=== PATIENT | male | born 2000 | race Caucasian/White ===

== ENCOUNTER 2024-01-18 15:49 | Emergency (ER) | payer OTHER, SELFPAY ==
[2024-01-18 15:53] VITALS: BP 150/79
[2024-01-18 17:51] VITALS: BP 136/95
--- NOTE | 2024-01-18 19:03 | ED.GENMED ---
History of Present Illness
General
Chief Complaint: Alcohol Problem
Source: patient
Exam Limitations: none
Time Seen by Provider: 01/18/24 18:43
History of Present Illness
History of Present Illness:
This is a 24 year old male that comes in with c/o alcohol abuse. States that he was talking with people and he feels that he wants to go somewhere to get off the alcohol. States that he drinks about 3 beers daily and more on the weekend. States that
his last drink was around 1:30pm. States that he does have panic attacks. Denies any fever, chills, chest pain, SOB, abd pain, nausea, vomiting, diarrhea, headache, dizziness, urinary burning.
Past History
Past History
ED Past Medical History: Psychiatric (Bipolar disorder, alcohol abuse)
ED Past Surgical History: Orthopedic (Left ankle surgery)
Patient has exhibited threatening behavior?: No
Social History
Tobacco: Smoker
Alcohol: Chronic alcoholic (Beer or wine 3 daily)
Personal: Single
Living: with family
Review of Systems
Review of Systems
All Other Systems: ROS reviewed and negative except as documented in HPI and ROS
Constitutional: Reports no symptoms; Denies fever or chills
EENT: Reports no symptoms
Respiratory: Reports no symptoms; Denies cough or trouble breathing
Cardiac: Reports no symptoms; Denies chest pain
ABD/GI: Reports no symptoms; Denies abdominal pain, nausea, vomiting or diarrhea
: Reports no symptoms; Denies dysuria, frequency or urgency
Musculoskeletal: Reports no symptoms
Skin: Reports no symptoms
Neurological: Reports no symptoms; Denies dizzy or headache
Psychiatric: Reports anxiety
Phy Exam
General Physical Exam
General Presentation: no apparent distress
General age: appears stated age
General Skin: warm and dry
General Habitus: normal
General Mental: alert
General Hydration: dry mucous membranes
ENT Exam
ENT Exam: TM's normal, pharynx normal and neck supple
Eye Exam
Eye Exam: EOMI
Cardiovascular Exam
Cardiovascular Exam: regular rate/rhythm, no edema, no murmur and normal peripheral pulses
Pulmonary Exam
Pulmonary Exam: lungs clear, no respiratory distress, no rales, chest non tender, no crackles, no rhonchi, no wheezing and no cough
Gastrointestinal Exam
Gastrointestinal Exam: normal bowel sounds, non tender, soft, no organomegaly, no pulsatile mass and non distended
Musculoskeletal Exam
Musculoskeletal Exam: full ROM and no edema
Skin Exam
Skin Exam: normal color, warm/dry, no rash and no petechia
Psychiatric Exam
Psychiatric Exam: anxious
Scores
Withdrawal Assessment of Alcohol
Withdrawal Assessment Completed?: No
Course
Orders/Labs/Results
Orders:
Orders
01/18/24 19:44
Alcohol Urgent
Complete Blood Count/With Diff Urgent
Comprehensive Metabolic Panel Urgent
01/18/24 19:50
Crisis Consult Routine
Reason for Consult: anxiety, Not eatinig. Drinking and not taking medications
Comment: seen by [facility] and they will speak with you
01/18/24 20:03
Urine Drug Abuse Screen Urgent
Date Specimen was Collected: 01/18/24
Time Specimen was Collected: 20:02
01/18/24 20:22
Lorazepam [Ativan] 1 mg PO NOW STA
01/18/24 21:06
Haloperidol Lactate [Haldol] 5 mg IM NOW STA
Abnormal Lab Results
01/18/24
19:44
MCH 31.1 H pg
(27.0-31.0)
Calcium 10.3 H mg/dl
(8.4-10.2)
Total Protein 8.4 H g/dl
(6.3-8.2)
Albumin 5.5 H g/dl
(3.5-5.0)
01/18/24 19:44
01/18/24 19:44
Calcium slightly elevated. Total protein slightly elevated. Albumin elevated. Urine Drug negative. Alcohol 126
Vital Signs
Initial and Last Documented VS:
Initial Vital Signs
Temp Pulse Resp BP Pulse Ox
98.3 F 117 20 150/79 98
01/18/24 15:53 01/18/24 15:53 01/18/24 15:53 01/18/24 15:53 01/18/24 15:53
Last Documented Vital Signs
Temp Pulse Resp BP Pulse Ox
97.9 F 118 19 136/95 98
01/18/24 17:51 01/18/24 17:51 01/18/24 17:51 01/18/24 17:51 01/18/24 17:51
MDM/Problems Addressed
Differential Diagnosis Includes:
alcohol abuse, Anxiety
MDM/Problems Addressed:
This is a 24 year old male that comes in with c/o alcohol abuse. States that he wants to go somewhere to get off the alcohol.
Will check labs and have [facility] see patient.
Patient was seen by [facility]. Patient has not been taking any of his psychiatric medications and it is felt that the patient would do better going inpatient for Psychiatric care as the alcohol is being uses to treat the Psychiatric problems. consult
place for Crisis.
Patient has been seen by Crisis and is not suicidal or Homicidal. Patient has been at [facility] in the past and is willing go call them tomorrow. Friend with patient states that he will make sure that he gets there. Explained to patient that he is
using the alcohol instead of his psych mediations. Will discharge home.
Chronic conditions affecting care: Psychiatric illness
Acute Exacerbation and/or Progression of Chronic Illness: Psychiatric illness
*Pulse Oximetry
Patient hypoxic: no
*EKG
Interpreted by ED Provider?: NA
Rate: EKG- N/A
*Mobile Solutions Architect Interpretation
Rate: Mobile Solutions Architect- N/A
*Critical Care Note
Total Time (30-74mins, 75-104mins- exclusive of procedures): Not Applicable
ED Attending Note
-
Portions of this chart may have been created with voice recognition software.� Occasional wrong word or��sound alike� substitutions may have occurred due to the inherent limitations of voice recognition software.
Discharge Plan
Departure
Patient Disposition: Home (Routine Discharge)
Date of Disposition: 01/18/24
Time of Disposition: 22:12
Patient with high blood pressure during this ER visit?: Yes
Condition: Good
Covid-19: Not Applicable
Discharge Problem:
Alcohol use disorder
Instructions: Alcohol Use Disorder (DC), BLOOD PRESSURE
Referrals:
Aashish Razo MD [Family Provider] -
Behzad Wells [Active] - Tomorrow
Activity Restrictions/Additional Instructions:
As discussed, you have been seen by [facility] and Crisis. You have not been taking your Psychiatric medications and instead you are using alcohol to help. Please call [facility] tomorrow and get back into see them. IF YOU HAVE ANY THOUGHTS OF HURTING
YOURSELF OR OTHERS OR YOU HAVE ANY OTHER CONCERNS PLEASE RETURN TO THE EMERGENCY ROOM.
Interventions
Interventions:
*Risk Screen - Suicide Last Done: 01/18/24 15:52
*General Assessment Last Done: 01/18/24 15:53
*Neglect/Abuse Screening Last Done: 01/18/24 15:52
ED- Fall Risk Assessment Last Done: 01/18/24 18:55
*ED COVID-19 Vaccine History Last Done: 01/18/24 19:09
ED- Neurological Assessment Last Done: 01/18/24 18:55
ED-Psychological Assessment Last Done: 01/18/24 18:55
Discharge Date and Time
Print Language: BOLIVIAN
[2024-01-18 19:51] LABS: % Basophils 1.4 % (0-2); % Eosinophils 0.8 % (0-6); % Immature Granulocytes 0.2 % (0-0.5); % Lymphocytes 29.6 % (20.5-51.1); % Monocytes 7.5 % (1.7-9.3); % Neutrophils 60.5 % (42.2-75.2); Absolute Basophils 0.1 10^3/uL (0-0.2); Absolute Lymphocytes 1.5 10^3/uL (1.2-3.4); Absolute Monocytes 0.4 10^3/uL (0.1-0.6); Absolute Neutrophils 3.1 10^3/uL (1.4-6.5); Hematocrit 45.3 % (39.0-52.0); Hemoglobin 16.1 g/dL (13.0-18.0); Mean Corp Hgb Conc. 35.5 g/dL (33.0-37.0); Mean Corpuscular Hgb 31.1 pg (27.0-31.0); Mean Corpuscular Volume 87.6 fL (80.0-94.0); Mean Platelet Volume 8.7 fL (7.4-10.4); Nucleated Red Blood Cells % 0 % (-); Platelet Count 357 10^3/uL (130-400); Red Blood Cell Count 5.17 10^6/uL (4.70-6.10); Red Cell Dist. Width 12.9 % (11.5-14.5); White Blood Cell Count 5.2 10^3/uL (4.8-10.8)
[2024-01-18 20:05] LABS: ALT (SGPT) 20 U/L (0-50); AST (SGOT) 29 U/L (17-59); Albumin 5.5 g/dl (3.5-5.0); Alcohol 126 mg/dl; Alkaline Phosphatase 62 U/L (38-126); Blood Urea Nitrogen 10 mg/dl (9-20); Calcium 10.3 mg/dl (8.4-10.2); Carbon Dioxide 26 mmol/L (22-30); Chloride 99 mmol/L (98-107); Glucose 98 mg/dl (70-99); Potassium 4.5 mmol/L (3.5-5.1); Sodium 142 mmol/L (135-145); Total Bilirubin 0.6 mg/dl (0.2-1.3); Total Protein 8.4 g/dl (6.3-8.2); eGFR > 60.00
[2024-01-18 20:19] LABS: Amphetamines Negative (Negative); Barbiturates Negative (Negative); Benzodiazepines Negative (Negative); Buprenorphine Negative (Negative); Cocaine Negative (Negative); Marijuana Negative (Negative); Methadone Negative (Negative); Methamphetamines Negative (Negative); Opiates Negative (Negative); Phencyclidine Negative (Negative); Tricyclic Antidepressants Negative (Negative)
[2024-01-18] MEDS: ATIVAN 1 MG PO (20:26)
[2024-01-18 22:28] VITALS: BP 144/96
== END 2024-01-18 22:30 | disposition home or self-care (01) ==
LOC: EMR 15:49
PROVIDERS: Clinical Nurse Specialist Family Health; EMERGENCY PHYSICIAN Emergency Medicine; FAMILY PHYSICIAN Family Medicine
DX: F10.229 Alcohol dependence with intoxication, unspecified (principal); Y90.6 Blood alcohol level of 120-199 mg/100 ml; R03.0 Elevated blood-pressure reading, without diagnosis of hypertension; Z91.148 Patient's other noncompliance with medication regimen for other reason; F41.9 Anxiety disorder, unspecified; F31.9 Bipolar disorder, unspecified; F17.200 Nicotine dependence, unspecified, uncomplicated
CPT/HCPCS: 99283; 80053; 80306; 82077; 85025

== ENCOUNTER 2024-04-24 16:29 | Emergency (ER) | payer OTHER, SELFPAY ==
[2024-04-24 16:55] VITALS: BP 144/93
--- NOTE | 2024-04-24 17:04 | ED.GENMED ---
ED Provider Triage
<Danuta Waters PA-C - Last Filed: 04/24/24 17:07>
-
Patient seen by provider in Triage?: Seen in Triage
24 y/o M
h/o alcohol abuse
? schizophrenia
here with pressured speech
says he took 1 extra vraylar and 1 extra clonidine earlier today when he was inoxicated
not intentional to harm self but to help cope with stress
lives with mom and dthinks she is not good fo rhim, she is overbearing
no SI
her with girlfriend
apparently had some episode while at work that prompted coworker to bring him here
not currently intoxicated
no medical symptoms
Will order screening labs and crisis consult
History of Present Illness
<Danuta Waters PA-C - Last Filed: 04/24/24 17:07>
General
Chief Complaint: Crisis Evaluation
Time Seen by Provider: 04/24/24 17:42
<Patrizia Purvis PA-C - Last Filed: 04/24/24 21:09>
General
Source: patient
Exam Limitations: none
Nursing documentation reviewed up to this point in time: agreed with
History of Present Illness
History of Present Illness:
Patient is a 24-year-old male with history of bipolar disorder presenting to the emergency department for crisis evaluation. Patient states that he feels his mom is 'overbearing '. Last night he was drinking some alcohol and he accidentally took 1
extra dose of his Vraylar and clonidine. He denies any suicidal intention. Today, at work, patient states that he felt off. He is attributing this to eating very little this morning and feels that he may have been hypoglycemic. Patient does
report a history of bipolar and states he was off his medication for a while though has been taking it regularly since February. Patient denies any suicidal thoughts or ideations. Patient denies any homicidal ideations. Patient denies hearing any
voices or visual hallucinations.
Patient does see a psychiatrist with [facility]. He most recently saw them 3 days ago.
Patient states that he will not take his medication while drinking alcohol anymore.
Past History
<Danuta Waters PA-C - Last Filed: 04/24/24 17:07>
Past History
ED Past Medical History: Psychiatric (Bipolar disorder, alcohol abuse)
ED Past Surgical History: Orthopedic (Left ankle surgery)
Patient has exhibited threatening behavior?: No
Social History
Tobacco: Smoker
Alcohol: Chronic alcoholic (Beer or wine 3 daily)
Personal: Single
Living: with family
Review of Systems
<Patrizia Purvis PA-C - Last Filed: 04/24/24 21:09>
Review of Systems
Allergies reviewed?: Yes
All Other Systems: ROS reviewed and negative except as documented in HPI and ROS
Phy Exam
<Patrizia Purvis PA-C - Last Filed: 04/24/24 21:09>
Physical Exam
Physical Exam:
Vitals: Patient's vital signs are stable. Afebrile
General: Patient is in no apparent distress.
Skin: Warm and dry, no rashes or lesions
Head: Normocephalic, atraumatic
Throat: Protecting airway
Neck: Normal ROM, no cervical spine tenderness
Cardiac: Regular rate
Pulm: No apparent respiratory distress
Abdomen: Nondistended
Extremities: No evidence of cyanosis or edema
Neuro: Grossly intact
Psychiatric: Somewhat unorganized thoughts. Good insight. Cooperative with exam. Answers questions
Course
<Danuta Waters PA-C - Last Filed: 04/24/24 17:07>
Orders/Labs/Results
Orders:
Orders
04/24/24 17:06
Crisis Consult Urgent
Reason for Consult: anxiety, pkaranoia
04/24/24 17:15
Alcohol Urgent
Complete Blood Count/With Diff Urgent
Comprehensive Metabolic Panel Urgent
TSH Reflex To Free T4 Urgent
Urine Drug Abuse Screen Urgent
Date Specimen was Collected: 04/24/24
Time Specimen was Collected: 17:13
Abnormal Lab Results
04/24/24
17:15
MCH 31.2 H pg
(27.0-31.0)
Lymphocytes % 16.3 L %
(20.5-51.1)
Chloride 97 L mmol/L
(98-107)
Glucose 110 H mg/dl
(70-99)
Albumin 5.1 H g/dl
(3.5-5.0)
04/24/24 17:15
04/24/24 17:15
Vital Signs
Initial and Last Documented VS:
Initial Vital Signs
Temp Pulse Resp BP Pulse Ox
98.1 F 95 18 144/93 97
04/24/24 16:55 04/24/24 16:55 04/24/24 16:55 04/24/24 16:55 04/24/24 16:55
Last Documented Vital Signs
Temp Pulse Resp BP Pulse Ox
98.1 F 85 18 148/86 98
04/24/24 16:55 04/24/24 18:47 04/24/24 16:55 04/24/24 18:47 04/24/24 18:47
<Patrizia Purvis PA-C - Last Filed: 04/24/24 21:09>
Orders/Labs/Results
Orders:
Orders
04/24/24 17:06
Crisis Consult Urgent
Reason for Consult: anxiety, pkaranoia
04/24/24 17:15
Alcohol Urgent
Complete Blood Count/With Diff Urgent
Comprehensive Metabolic Panel Urgent
TSH Reflex To Free T4 Urgent
Urine Drug Abuse Screen Urgent
Date Specimen was Collected: 04/24/24
Time Specimen was Collected: 17:13
Abnormal Lab Results
04/24/24
17:15
MCH 31.2 H pg
(27.0-31.0)
Lymphocytes % 16.3 L %
(20.5-51.1)
Chloride 97 L mmol/L
(98-107)
Glucose 110 H mg/dl
(70-99)
Albumin 5.1 H g/dl
(3.5-5.0)
04/24/24 17:15
04/24/24 17:15
Vital Signs
Initial and Last Documented VS:
Initial Vital Signs
Temp Pulse Resp BP Pulse Ox
98.1 F 95 18 144/93 97
04/24/24 16:55 04/24/24 16:55 04/24/24 16:55 04/24/24 16:55 04/24/24 16:55
Last Documented Vital Signs
Temp Pulse Resp BP Pulse Ox
98.1 F 85 18 148/86 98
04/24/24 16:55 04/24/24 18:47 04/24/24 16:55 04/24/24 18:47 04/24/24 18:47
<Porfirio Coles, DO - Last Filed: 04/24/24 19:00>
Orders/Labs/Results
Orders:
Orders
04/24/24 17:06
Crisis Consult Urgent
Reason for Consult: anxiety, pkaranoia
04/24/24 17:15
Alcohol Urgent
Complete Blood Count/With Diff Urgent
Comprehensive Metabolic Panel Urgent
TSH Reflex To Free T4 Urgent
Urine Drug Abuse Screen Urgent
Date Specimen was Collected: 04/24/24
Time Specimen was Collected: 17:13
Abnormal Lab Results
04/24/24
17:15
MCH 31.2 H pg
(27.0-31.0)
Lymphocytes % 16.3 L %
(20.5-51.1)
Chloride 97 L mmol/L
(98-107)
Glucose 110 H mg/dl
(70-99)
Albumin 5.1 H g/dl
(3.5-5.0)
04/24/24 17:15
04/24/24 17:15
Vital Signs
Initial and Last Documented VS:
Initial Vital Signs
Temp Pulse Resp BP Pulse Ox
98.1 F 95 18 144/93 97
04/24/24 16:55 04/24/24 16:55 04/24/24 16:55 04/24/24 16:55 04/24/24 16:55
Last Documented Vital Signs
Temp Pulse Resp BP Pulse Ox
98.1 F 85 18 148/86 98
04/24/24 16:55 04/24/24 18:47 04/24/24 16:55 04/24/24 18:47 04/24/24 18:47
<Patrizia Purvis PA-C - Last Filed: 04/24/24 21:09>
MDM/Problems Addressed
Differential Diagnosis Includes:
Not limited to: Psychiatric evaluation, acute psychosis, SI/HI, etc.
MDM/Problems Addressed:
24-year-old male presenting for crisis evaluation. Denies SI/HI, visual/auditory hallucinations. No medical complaints at this time. Follows with psychiatrist at [facility]. Patient hypertensive, otherwise stable vital signs. Physical
exam as above. No neurologic deficits. Patient in no distress. Mildly unorganized thought process although cooperative with exam, answers questions, with good insight. Screening labs and urine drug screen obtained in triage without any
clinically significant abnormalities.
Ultimately�patient without any SI/HI. No visual/auditory hallucinations. Patient does not appear acutely psychotic. Do not feel patient is a harm to himself or others. Patient has excellent insight and will follow closely with psychiatry.
Advised take medications as prescribed and not mix with alcohol. Patient stable for discharge with psychiatry follow-up.
Chronic conditions affecting care:
Bipolar 1 disorder
Acute Exacerbation and/or Progression of Chronic Illness:
N/A
<Patrizia Purvis PA-C - Last Filed: 04/24/24 21:09>
*Critical Care Note
Total Time (30-74mins, 75-104mins- exclusive of procedures): Not Applicable
ED Attending Note
<Danuta Waters PA-C - Last Filed: 04/24/24 17:07>
-
Portions of this chart may have been created with voice recognition software.� Occasional wrong word or��sound alike� substitutions may have occurred due to the inherent limitations of voice recognition software.
<Porfirio Coles, - Last Filed: 04/24/24 19:00>
ED Attending Note
Patient seen and examined by attending physician: Yes
I performed a history and physical exam of patient and discussed management with resident, I reviewed resident's note and agree with documented findings and plan of care.: Yes
ED Attending Note:
I have reviewed and agree with history and treatment plan by Patrizia Purvis. My exam revealed 24-year-old male no acute distress. Denies suicidal ideation. Normal neurologic exam. Stable for discharge. Return precautions given.
Discharge Plan
Departure
Patient Disposition: Home (Routine Discharge)
Date of Disposition: 04/24/24
Time of Disposition: 19:16
Patient with high blood pressure during this ER visit?: Yes
Condition: Good
Discharge Problem:
Encounter for psychiatric assessment
Instructions: BLOOD PRESSURE
Referrals:
UNKNOWN - PT NOT,INTERVIEWE [Family Provider] -
Activity Restrictions/Additional Instructions:
RETURN TO THE EMERGENCY DEPARTMENT WITH ANY THOUGHTS OF HARMING YOURSELF OR OTHERS, HEARING VOICES, HALLUCINATIONS, WORSENING IN CURRENT SYMPTOMS, OR ANY OTHER CONCERNS
-As discussed�it is very important that you continue to take your medications as prescribed. You should not mix your medications with alcohol.
-You should follow closely with your psychiatrist for further evaluation/management
Monitor your symptoms closely and return to the emergency department with any acute worsening/new symptoms or any thoughts of harming yourself or anyone else.
Interventions
Interventions:
*Risk Screen - Suicide Last Done: 04/24/24 16:55
*General Assessment Last Done: 04/24/24 16:55
*Neglect/Abuse Screening Last Done: 04/24/24 16:55
ED- Fall Risk Assessment Last Done: 04/24/24 18:49
*Nursing Disposition Last Done: 04/24/24 19:35
ED-Psychological Assessment Last Done: 04/24/24 18:47
Discharge Date and Time
Discharge Date/Time: 04/24/24 19:36
Print Language: CITIZEN OF [place]
[2024-04-24 17:24] LABS: % Basophils 0.5 % (0-2); % Eosinophils 0.5 % (0-6); % Immature Granulocytes 0.4 % (0-0.5); % Lymphocytes 16.3 % (20.5-51.1); % Monocytes 8.1 % (1.7-9.3); % Neutrophils 74.2 % (42.2-75.2); Absolute Lymphocytes 1.3 10^3/uL (1.2-3.4); Absolute Monocytes 0.6 10^3/uL (0.1-0.6); Absolute Neutrophils 5.7 10^3/uL (1.4-6.5); Hematocrit 44.5 % (39.0-52.0); Hemoglobin 15.1 g/dL (13.0-18.0); Mean Corp Hgb Conc. 33.9 g/dL (33.0-37.0); Mean Corpuscular Hgb 31.2 pg (27.0-31.0); Mean Corpuscular Volume 91.9 fL (80.0-94.0); Mean Platelet Volume 9.2 fL (7.4-10.4); Nucleated Red Blood Cells % 0 % (-); Platelet Count 319 10^3/uL (130-400); Red Blood Cell Count 4.84 10^6/uL (4.70-6.10); White Blood Cell Count 7.7 10^3/uL (4.8-10.8)
[2024-04-24 17:42] LABS: Amphetamines Negative (Negative); Barbiturates Negative (Negative); Benzodiazepines Negative (Negative); Buprenorphine Negative (Negative); Cocaine Negative (Negative); Marijuana Negative (Negative); Methadone Negative (Negative); Methamphetamines Negative (Negative); Opiates Negative (Negative); Phencyclidine Negative (Negative); Tricyclic Antidepressants Negative (Negative)
[2024-04-24 17:45] LABS: ALT (SGPT) 20 U/L (0-50); AST (SGOT) 27 U/L (17-59); Albumin 5.1 g/dl (3.5-5.0); Alkaline Phosphatase 51 U/L (38-126); Blood Urea Nitrogen 9 mg/dl (9-20); Calcium 10.1 mg/dl (8.4-10.2); Carbon Dioxide 29 mmol/L (22-30); Chloride 97 mmol/L (98-107); Glucose 110 mg/dl (70-99); Potassium 3.9 mmol/L (3.5-5.1); Sodium 137 mmol/L (135-145); Total Protein 7.6 g/dl (6.3-8.2); eGFR > 60.00
[2024-04-24 17:48] LABS: Alcohol None Detected
[2024-04-24 18:12] LABS: TSH Reflex To Free T4 1.04 uIU/ml (0.47-4.68)
[2024-04-24 18:47] VITALS: BP 148/86
== END 2024-04-24 19:36 | disposition home or self-care (01) ==
LOC: EMR 16:29
PROVIDERS: Physician Assistant; EMERGENCY PHYSICIAN Emergency Medicine
DX: Z02.79 Encounter for issue of other medical certificate (principal); F10.90 Alcohol use, unspecified, uncomplicated; R03.0 Elevated blood-pressure reading, without diagnosis of hypertension; F31.9 Bipolar disorder, unspecified; F17.210 Nicotine dependence, cigarettes, uncomplicated
CPT/HCPCS: 99283; 80053; 80306; 82077; 84443; 85025

== ENCOUNTER 2024-04-25 10:08 | Emergency (ER) | payer OTHER, SELFPAY ==
[2024-04-25 10:12] VITALS: BP 128/100
[2024-04-25 10:40] LABS: % Basophils 0.4 % (0-2); % Eosinophils 0.2 % (0-6); % Immature Granulocytes 0.4 % (0-0.5); % Lymphocytes 10.5 % (20.5-51.1); % Monocytes 6.7 % (1.7-9.3); % Neutrophils 81.8 % (42.2-75.2); Absolute Lymphocytes 0.9 10^3/uL (1.2-3.4); Absolute Monocytes 0.6 10^3/uL (0.1-0.6); Absolute Neutrophils 6.7 10^3/uL (1.4-6.5); Hematocrit 43.6 % (39.0-52.0); Hemoglobin 15.1 g/dL (13.0-18.0); Mean Corp Hgb Conc. 34.6 g/dL (33.0-37.0); Mean Corpuscular Hgb 31.3 pg (27.0-31.0); Mean Corpuscular Volume 90.3 fL (80.0-94.0); Mean Platelet Volume 9.7 fL (7.4-10.4); Nucleated Red Blood Cells % 0 % (-); Platelet Count 315 10^3/uL (130-400); Red Blood Cell Count 4.83 10^6/uL (4.70-6.10); White Blood Cell Count 8.2 10^3/uL (4.8-10.8)
[2024-04-25 10:57] LABS: ALT (SGPT) 19 U/L (0-50); AST (SGOT) 25 U/L (17-59); Alkaline Phosphatase 55 U/L (38-126); Blood Urea Nitrogen 8 mg/dl (9-20); Calcium 9.9 mg/dl (8.4-10.2); Carbon Dioxide 23 mmol/L (22-30); Chloride 102 mmol/L (98-107); Glucose 119 mg/dl (70-99); Potassium 3.7 mmol/L (3.5-5.1); Sodium 136 mmol/L (135-145); Total Bilirubin 0.5 mg/dl (0.2-1.3); Total Protein 7.4 g/dl (6.3-8.2); eGFR > 60.00
[2024-04-25 11:29] VITALS: BP 156/109
[2024-04-25] MEDS: ATIVAN 2 MG IM (11:37)
--- NOTE | 2024-04-25 11:47 | ED.GENMED ---
History of Present Illness
General
Chief Complaint: Alcohol Problem
Source: patient
Time Seen by Provider: 04/25/24 11:23
History of Present Illness
History of Present Illness:
24-year-old male with past medical history of alcohol abuse and possible bipolar disorder presenting to the ER via EMS for alcohol abuse. Patient drinks daily, last drink this morning prior to arrival with patient stating he feels that he needs
psychiatric admission. Patient very difficult to get a history from, will answer some questions and then have tangential rapid speech and very difficult to redirect. Patient states that he feels as if he is having an anxiety attack. Questionable
compliance with chronic medication. Remainder of history very difficult to obtain
Past History
Past History
ED Past Medical History: Psychiatric (Bipolar disorder, alcohol abuse)
ED Past Surgical History: Orthopedic (Left ankle surgery)
Patient has exhibited threatening behavior?: No
Social History
Tobacco: Smoker
Alcohol: Chronic alcoholic (Beer or wine 3 daily)
Drug: None
Personal: Single
Living: with family
Review of Systems
Review of Systems
All Other Systems: ROS reviewed and negative except as documented in HPI and ROS
Phy Exam
Physical Exam
Physical Exam:
GENERAL: Alert , very anxious, rapid speech, very difficult to redirect, does not sit still
EYE: conjunctiva clear
NECK: Supple
ENT: o/p clr, mmm.
CARDIAC: Borderline tachycardic rate and rhythm
LUNGS: Clear breath sounds bilaterally, no acute respiratory distress, no wheezes/rales/rhonchi
NEUROLOGICAL: Alert and oriented
SKIN: Warm and dry, skin intact.
MUSCULOSKELETAL: well perfused.
PSYCH: Normal and appropriate interaction.
Scores
Heart Failure Risk
Heart Failure Risk Score: Not Applicable
Heart Score for Chest Pain Patients
STEMI patient?: Not applicable
Withdrawal Assessment of Alcohol
Withdrawal Assessment Completed?: Not applicable
Course
Orders/Labs/Results
Orders:
Orders
04/25/24 10:25
Complete Blood Count/With Diff Urgent
Comprehensive Metabolic Panel Urgent
04/25/24 11:34
Lorazepam [Ativan] 2 mg IM NOW STA
04/25/24 11:35
Crisis Consult Urgent
Reason for Consult: 201 requested
04/25/24 11:49
Nicotine [Nicoderm Transdermal] 21 mg TRANSDERM NOW STA
04/25/24 14:07
Drug Screen, Urine [Urine Drug Abuse Screen] Urgent
Date Specimen was Collected: 04/25/24
Time Specimen was Collected: 14:05
Fentanyl, Urine Urgent
Abnormal Lab Results
04/25/24 04/25/24
10:25 14:07
MCH 31.3 H pg
(27.0-31.0)
Absolute Neuts (auto) 6.7 H 10^3/uL
(1.4-6.5)
Absolute Lymphs (auto) 0.9 L 10^3/uL
(1.2-3.4)
Neutrophils % 81.8 H %
(42.2-75.2)
Lymphocytes % 10.5 L %
(20.5-51.1)
BUN 8 L mg/dl
(9-20)
Glucose 119 H mg/dl
(70-99)
U Benzodiazepines Scrn Positive H
(Negative)
04/25/24 10:25
04/25/24 10:25
Vital Signs
Initial and Last Documented VS:
Initial Vital Signs
Temp Pulse Resp BP Pulse Ox
98.0 F 103 16 128/100 98
04/25/24 10:12 04/25/24 10:12 04/25/24 10:12 04/25/24 10:12 04/25/24 10:12
Last Documented Vital Signs
Temp Pulse Resp BP Pulse Ox
98.0 F 105 15 156/109 98
04/25/24 10:12 04/25/24 11:31 04/25/24 11:23 04/25/24 11:29 04/25/24 10:12
MDM/Problems Addressed
Differential Diagnosis Includes:
Alcohol/substance abuse, withdrawal, underlying psychiatric disorder
MDM/Problems Addressed:
24-year-old male presenting to the ER initially reported for alcohol abuse however patient appears to have some form of psychiatric disturbance, very rapid and pressured speech, unable to sit still, very anxious in appearance. Patient does note his
last alcoholic beverage was this morning making acute withdrawal little bit less likely. Will check labs. Crisis consult ordered. Patient requesting to go to voluntary admission at psychiatric facility. Denies SI/HI or hallucinations.
Disposition pending
Chronic conditions affecting care: Psychiatric illness
Acute Exacerbation and/or Progression of Chronic Illness: Psychiatric illness
*Pulse Oximetry
Patient hypoxic: no
*Critical Care Note
Total Time (30-74mins, 75-104mins- exclusive of procedures): Not Applicable
Comment
Comment:
Following Ativan patient is much more calm and sleeping. Seen by crisis team. Awaiting disposition.
Patient Management
Escalation/DeEscalation of care consider admission/obs:
Patient seen by crisis. States he has no intention of doing inpatient and only wants to be in outpatient partial program. Patient was given multiple options and ultimately still wants to pursue outpatient partial program treatment. He continues
to deny SI, HI or hallucinations. Patient is stable for discharge from the emergency department. He does have a ride picking him up to take him home. Aware of return precautions to the ER.
ED Attending Note
-
Portions of this chart may have been created with voice recognition software.� Occasional wrong word or��sound alike� substitutions may have occurred due to the inherent limitations of voice recognition software.
Discharge Plan
Departure
Patient Disposition: Home (Routine Discharge)
Date of Disposition: 04/25/24
Time of Disposition: 15:33
Patient with high blood pressure during this ER visit?: Yes
Discharge Problem:
Alcohol abuse
Instructions: Alcohol Use Disorder (DC)
Prescriptions:
No Action
No Current Medications
0
Referrals:
NONE,* [Family Provider] -
Interventions
Interventions:
*Risk Screen - Suicide Last Done: 04/25/24 10:12
*General Assessment Last Done: 04/25/24 13:24
*Neglect/Abuse Screening Last Done: 04/25/24 10:12
*ED COVID-19 Vaccine History Last Done: 04/25/24 13:24
*Nursing Disposition Last Done: 04/25/24 15:48
ED- Neurological Assessment Last Done: 04/25/24 13:25
ED-Psychological Assessment Last Done: 04/25/24 13:25
Discharge Date and Time
Discharge Date/Time: 04/25/24 15:52
Print Language: CHINESE
[2024-04-25] MEDS: NICODERM TRANSDERMAL 21 MG TRANSDERM (11:54)
[2024-04-25 12:06] VITALS: BMI 20.3
[2024-04-25 14:51] LABS: Amphetamines Negative (Negative); Barbiturates Negative (Negative); Benzodiazepines Positive (Negative); Buprenorphine Negative (Negative); Cocaine Negative (Negative); Marijuana Negative (Negative); Methadone Negative (Negative); Methamphetamines Negative (Negative); Opiates Negative (Negative); Phencyclidine Negative (Negative); Tricyclic Antidepressants Negative (Negative)
[2024-04-25 15:03] LABS: Fentanyl, Urine Negative (Negative)
== END 2024-04-25 15:52 | disposition home or self-care (01) ==
LOC: EMR 10:08
PROVIDERS: Physician Assistant Medical; EMERGENCY PHYSICIAN Emergency Medicine
DX: F10.10 Alcohol abuse, uncomplicated (principal); F17.200 Nicotine dependence, unspecified, uncomplicated; F31.9 Bipolar disorder, unspecified
CPT/HCPCS: 99283; 96372; 80053; 80306; 80307; 85025

== ENCOUNTER 2024-04-26 04:19 | Emergency (ER) | payer OTHER, SELFPAY ==
[2024-04-26] VITALS (12 sets, daily range): BP systolic 103–155; BP diastolic 63–116; BMI 20.4
[2024-04-26 04:53] LABS: Amphetamines Negative (Negative); Barbiturates Negative (Negative); Benzodiazepines Negative (Negative); Buprenorphine Negative (Negative); Cocaine Negative (Negative); Marijuana Negative (Negative); Methadone Negative (Negative); Methamphetamines Negative (Negative); Opiates Negative (Negative); Phencyclidine Negative (Negative); Tricyclic Antidepressants Negative (Negative)
[2024-04-26] MEDS: NICODERM TRANSDERMAL 14 MG TRANSDERM ×2 (05:08→09:53)
[2024-04-26] MEDS: ZYPREXA 5 MG PO (06:21)
[2024-04-26] MEDS: KLONOPIN 0.5 MG PO (06:21)
--- NOTE | 2024-04-26 06:25 | ED.GENMED ---
History of Present Illness
General
Chief Complaint: Crisis Evaluation
Source: patient
Exam Limitations: clinical condition
Time Seen by Provider: 04/26/24 06:04
Nursing documentation reviewed up to this point in time: agreed with
History of Present Illness
History of Present Illness:
24-year-old male with a past medical history of bipolar disorder and alcohol use who presents to the ER for the third time in 3 days; he presents today apparently for psychiatric assessment although patient is a very erratic historian. He was here
ostensibly for crisis evaluation/anxiety 2 days ago seen by crisis and was recommended for outpatient treatment. Then was seen yesterday once again for psychiatric care. He apparently reported alcohol use yesterday although to me he says he has
'tapered off' alcohol and that he no longer drinks. When I ask him why he is here today he says various things�he is having flights of ideas initially he starts talking about his medications in detail saying that he needs his Klonopin and Vraylar
or else 'I am going to code.' He then begins speaking about various other topics including the fact that he has PTSD from his mother and the fact that he is reportedly autistic. Very difficult to get straightforward clinical history from this
patient due to acute psychiatric issue.
Past History
Past History
ED Past Medical History: Psychiatric (Bipolar disorder, alcohol abuse)
ED Past Surgical History: Orthopedic (Left ankle surgery)
Patient has exhibited threatening behavior?: No
Social History
Tobacco: Smoker
Alcohol: Chronic alcoholic (Beer or wine 3 daily)
Drug: None
Personal: Single
Living: with family
Review of Systems
Review of Systems
Unable to obtain full review of systems at this time due to: due to acuity (Appears manic/psychotic)
All Other Systems: Not applicable
Phy Exam
Physical Exam
Physical Exam:
General: Awake, alert, pacing around the room appears very anxious
Head: Normocephalic, atraumatic
Eyes: Conjunctiva normal
Throat: Airway intact, handling secretions
Neck: Trachea midline, supple without meningismus
Lungs: Breathing comfortably with no distress, no cyanosis or accessory muscle use, normal respiratory rate and pulse ox
Heart: Regular rate
Neuro: Cranial nerves grossly intact, speech fluid, no gross motor or sensory deficits, ambulatory
Skin: no rash
Extremities: Atraumatic, warm well-perfused
Scores
Heart Failure Risk
Heart Failure Risk Score: Not Applicable
Heart Score for Chest Pain Patients
STEMI patient?: Not applicable
Withdrawal Assessment of Alcohol
Withdrawal Assessment Completed?: Not applicable
Course
Orders/Labs/Results
Orders:
Orders
04/26/24 04:29
Urine Drug Abuse Screen Urgent
Date Specimen was Collected: 04/26/24
Time Specimen was Collected: 04:26
04/26/24 04:38
Crisis Consult Urgent
Reason for Consult: rambling speech, hx bipolar
04/26/24 05:03
Nicotine [Nicoderm Transdermal] 14 mg .ROUTE .STK-MED ONE
04/26/24 06:11
Clonazepam [Klonopin] 0.5 mg PO NOW STA
Olanzapine [Zyprexa] 5 mg PO NOW STA
04/26/24 06:22
Alcohol Urgent
04/26/24 07:58
PSYCHIATRY CONSULT Urgent
Consulting Provider: Marciano Tinoco
Was physician already notified: Yes
04/26/24 08:00
Nicotine [Nicoderm Transdermal] 14 mg TRANSDERM DAILY
04/26/24 09:16
Lorazepam [Ativan] 2 mg PO NOW STA
Vital Signs
Initial and Last Documented VS:
Initial Vital Signs
Temp Pulse Resp BP Pulse Ox
36.6 C 93 20 155/99 99
04/26/24 04:20 04/26/24 04:20 04/26/24 04:20 04/26/24 04:20 04/26/24 04:20
Last Documented Vital Signs
Temp Pulse Resp BP Pulse Ox
36.4 C 82 20 127/89 98
04/26/24 07:18 04/26/24 07:18 04/26/24 07:18 04/26/24 07:18 04/26/24 07:18
MDM/Problems Addressed
Differential Diagnosis Includes:
Drug/alcohol intoxication, drug/alcohol withdrawal, sindi/bipolar disorder, schizophrenia/psychosis
MDM/Problems Addressed:
24-year-old male presents to the emergency room with delusions, paranoia, pressured speech and flight of ideas�this is his third ER visit for psychiatric care at the past 3 days and today he appears to be having episode of psychosis or sindi with
some psychotic features. Hypertensive otherwise normal vitals. Physical exam as above. Will treat with Klonopin and olanzapine as he appears extremely anxious and unsettled and is beginning to escalate somewhat in his behavior and yelling at
staff. Case discussed with crisis requesting psychiatry assessment. Will monitor on continuous observation. Check alcohol and UDS. Hold on other lab work as he had lab work yesterday. Reassess after the above.
Discussed with crisis apparently now mother has filed a 302 for involuntary psychiatric hold. Patient is still very agitated, anxious, paranoid. Provide p.o. Ativan. Case discussed with psychiatry for consultation. Continue to monitor very
closely.
Chronic conditions affecting care:
Bipolar disorder, alcohol use
Acute Exacerbation and/or Progression of Chronic Illness:
Hypertensive likely anxiety related�treat psychiatric symptoms but no indication for emergent antihypertensive treatment
Acute Exacerbation and/or Progression of Chronic Illness: HTN
*Pulse Oximetry
Patient hypoxic: no
*Critical Care Note
Total Time (30-74mins, 75-104mins- exclusive of procedures): Not Applicable
Data Reviewed
Source: patient and records
Patient Management
Discussion with other providers: Ad Operations Coordinator (Discussed with crisis team, psychiatry)
Escalation/DeEscalation of care consider admission/obs:
Inpatient psychiatric care indicated
ED Attending Note
-
Portions of this chart may have been created with voice recognition software.� Occasional wrong word or��sound alike� substitutions may have occurred due to the inherent limitations of voice recognition software.
Discharge Plan
Departure
Patient Disposition: Psych Facility
Date of Disposition: 04/26/24
Time of Disposition: 09:35
Discharge Problem:
Psychosis
Prescriptions:
No Action
No Current Medications
0
Referrals:
Porfirio Dutton MD [Family Provider] -
Interventions
Interventions:
*Risk Screen - Suicide Last Done: 04/26/24 04:20
*General Assessment Last Done: 04/26/24 04:20
*Neglect/Abuse Screening Last Done: 04/26/24 04:20
ED- Fall Risk Assessment Last Done: 04/26/24 07:18
*ED COVID-19 Vaccine History Last Done: 04/26/24 04:20
ED-Psychological Assessment Last Done: 04/26/24 07:18
Discharge Date and Time
Print Language: LITHUANIAN
[2024-04-26 06:39] LABS: Alcohol 17 mg/dl
--- NOTE | 2024-04-26 09:21 | EDRN ---
the pt has approached this RN at the nurses station many times stating, 'I feel like i am coding i am coding and i need someone to help me', this RN escorts the pt back to his room, checks his vital signs and assures the pt that he is stable, the pt
is able to be redirected verbally and the pt is able to practice deep breathing, Dr. Alejandre was brought to the pts bedside to speak to the pt and per the provider orders were placed for PO Ativan, the pt is pacing back and forth in the room and
washing his hands and sniffing the soap on his hands
--- NOTE | 2024-04-26 09:43 | EDRN ---
psychiatry currently at the pts bedside speaking with the pt, the pt stated to this RN, 'I need water i am gonna pass out', this RN provided the pt with iced water, the pt is sitting in the chair in ED Bed #12 speaking with the psychiatrist
[2024-04-26] MEDS: ATIVAN 2 MG PO (09:48)
--- NOTE | 2024-04-26 09:55 | CON.MD ---
Consultation - Medical
-
patient seen chart reviewed, case discussed with dr lan and crisis staff. patient is a client of [facility] and has been seen recently by cristi there last time being on april 18. at that time it was recommended he resume vraylar and clonidine at . the
patient is rather disorganized in his recitation of life hx . i was able to access the [facility] record and there is also some psych hx in the chart. he has hx of bipolar disorder both manic and depressed phases with psychosis. he has been
hospitalized at [facility] for sindi with psychosis. he was seen for an evaluation at [facility] in feb 2024 and placed on vraylar which apparently he did not take reliably. he also has been drinking. he says he has cut down on drinking and now has
three beers daily planning to go down to 'two beers daily' tomorrow. he is not sleeping. thoughts are racing. his mother has told crisis she will file a 302 however the patient is agreeing to go to in patient psych to resume meds and get himself in
order psychologically. he also says he recognized need for sobriety. he is not verbalizing overt delusions but is all over the place when you try to talk to him showing me videos on his phone (relevance not clear to me). he is eating and drinking.
he denies thoughts of harm to self or others but given his presentation clearly his judgment is poor
past psych hx patient hospitalized in the past for sindi w psychotic fx. he has also experienced depressive episodes. has taken lithium r isperdal geodone and abiify in the past. also took abilify maintenna. develope high prolactin on risperdal
(from old record) no hx suicide attempts
medical labs look ok bal 17 tox okay w only bzp which he was given here bp 130/88 pulse is 113 but likely he is agitated afebile. no evidence of sweating tremor etc. to suggest etoh wd
substance abuse etoh as above. reports he is interested in sobriety at this point. started dromlomg at age 14
fh non contributory and denied according to old record
social lost dad as a child painful for him raised by single mother one sib. lives w mom
mse alert ox3 speech pressured hyperverbal thought process rambling and tangential mood is hypomanic affect labile denies si insight judgment lacking
dx bipolar manic with psychotic fx
plan patient agreeing to voluntary hospitalization. if not mom is considering filing a 302 which i would consider backup. will give an additional 5 mg zyprexa and 2 mg ativan now as he is quite hyper. ativan prn one mg for the rest of the day.
would suggest need to monitor re etoh wd there are no signs of this currently and patient denies he has ever had wd sx.
--- NOTE | 2024-04-26 09:57 | EDRN ---
the pt removed his prior nicotene patch, this RN placed new nicotene patch on the right upper arm, the pt was compliant with taking oral Ativan
--- NOTE | 2024-04-26 10:00 | EDRN ---
the pt is laying in stretcher in the lowest position, side rails up x2, call soriano within reach, HOB elevated, no s/s of distress, the pt continues to yell for help and states that he is coding, BP cuff, and Sp02 monitor currently on the pt, VS WNL,
the pt is being verbally redirected and talked through deep breathing
[2024-04-26] MEDS: ZYPREXA ZYDIS (ORALLY DISINTEGRATING) 5 MG PO (10:25)
== END 2024-04-26 18:01 ==
LOC: EMR 04:19
PROVIDERS: Emergency Medicine; CONSULT PHYSICIAN Psychiatry & Neurology Psychiatry; EMERGENCY PHYSICIAN Emergency Medicine; FAMILY PHYSICIAN Family Medicine
DX: F29 Unspecified psychosis not due to a substance or known physiological condition (principal); F31.9 Bipolar disorder, unspecified; F10.90 Alcohol use, unspecified, uncomplicated; F17.200 Nicotine dependence, unspecified, uncomplicated; I10 Essential (primary) hypertension
CPT/HCPCS: 99285; 80306; 82077

== ENCOUNTER 2024-05-05 23:43 | Emergency (ER) | payer OTHER, SELFPAY ==
--- NOTE | 2024-05-06 00:08 | ED.GENMED ---
History of Present Illness
General
Chief Complaint: Psychiatric Problem
Source: patient and ambulance crew
Time Seen by Provider: 05/05/24 23:58
History of Present Illness
History of Present Illness:
24-year-old male who presents for evaluation concerned he is in 'liver failure'. Patient states he feels very 'anxious'. He reports that he has been taking Vraylar but did not take it for a while but took it today. He feels like he might need
clonidine to counteract it. He states 'I have ADHD, I may have autism, and I have anxiety'. Patient is very anxious on evaluation. He states this will mom is an alcoholic. He was recently in [place] and had DTs. States he does not think he had
alcohol to his knowledge. He then later states he was at a [employer] [place] out with 'people' and is not sure if they slipped him a 'Adolfo'. Patient denies any pain. He states 'do not let me '.
Past History
Past History
ED Past Medical History: Psychiatric (Bipolar disorder, alcohol abuse)
ED Past Surgical History: Orthopedic (Left ankle surgery)
Patient has exhibited threatening behavior?: No
Social History
Tobacco: Smoker
Alcohol: Chronic alcoholic (Beer or wine 3 daily)
Drug: None
Personal: Single
Living: with family
Phy Exam
Physical Exam
Physical Exam:
CONSTITUTIONAL Patient alert and oriented to person, place and time. Extremely anxious and paranoid. Vital signs reviewed.
HEAD atraumatic, normocephalic.
EYES eyelids normal to inspection, Extraocular muscles intact, Conjunctiva normal, Sclera normal.
NECK normal range of motion, Trachea midline, no jugular venous distention.
RESPIRATORY CHEST No respiratory distress noted, Chest expansion equal
ABDOMEN abdomen nontender, Bowel sounds normal. No distention.
BACK normal inspection, no obvious deformities
UPPER EXTREMITY range of motion normal, Motor strength normal, no cyanosis, no edema.
LOWER EXTREMITY range of motion normal, Motor strength normal, no cyanosis, no edema.
NEURO Speech pressured, No focal motor deficits, Orchard coma scale 15, Memory normal, Cranial Nerves intact to screening exam.
SKIN skin warm, dry, and normal in color.
Psych pressured speech, pacing in the room, anxious
Course
Orders/Labs/Results
Orders:
Orders
05/06/24 00:05
Crisis Consult Urgent
Reason for Consult: sindi
Asenapine Sublingual [Saphris] 10 mg SL NOW STA
05/06/24 00:07
Lorazepam [Ativan] 1 mg IV NOW STA
05/06/24 00:10
Asenapine Sublingual [Saphris] 10 mg .ROUTE .STK-MED ONE
05/06/24 00:12
Electrocardiogram (*1) Urgent
Reason for Study: QTc Monitoring
EKG- Treatment ONCE
05/06/24 00:13
Lorazepam [Ativan] 2 mg IV NOW STA
05/06/24 00:23
Acetaminophen Urgent
Alcohol Urgent
Comprehensive Metabolic Panel Urgent
Salicylate Urgent
05/06/24 00:24
Complete Blood Count/With Diff Urgent
05/06/24 07:04
Fentanyl, Urine Urgent
Urine Drug Abuse Screen Urgent
Date Specimen was Collected: 05/06/24
Time Specimen was Collected: 07:01
Abnormal Lab Results
05/06/24 05/06/24 05/06/24
00:23 00:24 07:04
RBC 4.47 L 10^6/uL
(4.70-6.10)
MCH 31.5 H pg
(27.0-31.0)
Abs Immat Gran (auto) 0.1 H 10^3/uL
(0-0.05)
Absolute Monos (auto) 0.7 H 10^3/uL
(0.1-0.6)
Immature Gran % 1.2 H %
(0-0.5)
Lymphocytes % 20.0 L %
(20.5-51.1)
Monocytes % 10.1 H %
(1.7-9.3)
Glucose 108 H mg/dl
(70-99)
Salicylates < 1.0 L mg/dl
(2.0-20.0)
Acetaminophen < 10 L ug/ml
(10-30)
U Benzodiazepines Scrn Positive H
(Negative)
05/06/24 00:24
05/06/24 00:23
Vital Signs
Initial and Last Documented VS:
Initial Vital Signs
Pulse Resp Pulse Ox
110 24 98
05/05/24 23:44 05/05/24 23:44 05/05/24 23:44
Last Documented Vital Signs
Pulse Resp BP Pulse Ox
82 20 129/71 98
05/06/24 07:10 05/06/24 07:10 05/06/24 07:10 05/06/24 07:10
MDM/Problems Addressed
MDM/Problems Addressed:
Acute severe sindi, bipolar disorder
*Pulse Oximetry
Patient hypoxic: no
*Critical Care Note
Total Time (30-74mins, 75-104mins- exclusive of procedures): Not Applicable
Data Reviewed
Source: patient
Further Testing Considered But Not Given:
Consider CT head but patient has known history of sindi
Patient Management
Escalation/DeEscalation of care consider admission/obs:
Patient presents clearly manic and paranoid. Given sedation. Await placement
ED Attending Note
-
Portions of this chart may have been created with voice recognition software.� Occasional wrong word or��sound alike� substitutions may have occurred due to the inherent limitations of voice recognition software.
Discharge Plan
Departure
Patient Disposition: Psych Facility
Date of Disposition: 05/06/24
Time of Disposition: 00:35
Discharge Problem:
acute sindi
Prescriptions:
No Action
No Current Medications
0
Interventions
Interventions:
*Nursing Disposition Last Done: 05/06/24 10:34
ED-Skin Assessment Last Done: 05/06/24 00:36
ED- Pulmonary Assessment Last Done: 05/06/24 00:25
ED-Psychological Assessment Last Done: 05/06/24 00:36
ED-EENT Assessment Last Done: 05/06/24 00:36
Discharge Date and Time
Discharge Date/Time: 05/06/24 10:35
Print Language: NORWEGIAN
[2024-05-06] MEDS: ATIVAN 2 MG IV (00:21)
[2024-05-06] MEDS: SAPHRIS 10 MG SL (00:21)
[2024-05-06 00:48] LABS: ALT (SGPT) 22 U/L (0-50); AST (SGOT) 29 U/L (17-59); Acetaminophen < 10 ug/ml (10-30); Albumin 4.8 g/dl (3.5-5.0); Alkaline Phosphatase 52 U/L (38-126); Blood Urea Nitrogen 12 mg/dl (9-20); Calcium 9.2 mg/dl (8.4-10.2); Carbon Dioxide 28 mmol/L (22-30); Chloride 102 mmol/L (98-107); Glucose 108 mg/dl (70-99); Potassium 3.6 mmol/L (3.5-5.1); Salicylate < 1.0 mg/dl (2.0-20.0); Sodium 139 mmol/L (135-145); Total Bilirubin 0.2 mg/dl (0.2-1.3); eGFR > 60.00
[2024-05-06 00:49] VITALS: BP 119/71
[2024-05-06 00:49] LABS: % Basophils 0.7 % (0-2); % Eosinophils 1.3 % (0-6); % Immature Granulocytes 1.2 % (0-0.5); % Monocytes 10.1 % (1.7-9.3); % Neutrophils 66.7 % (42.2-75.2); Absolute Basophils 0.1 10^3/uL (0-0.2); Absolute Eosinophils 0.1 10^3/uL (0-0.7); Absolute Immature Granulocytes 0.1 10^3/uL (0-0.05); Absolute Lymphocytes 1.4 10^3/uL (1.2-3.4); Absolute Monocytes 0.7 10^3/uL (0.1-0.6); Absolute Neutrophils 4.5 10^3/uL (1.4-6.5); Hematocrit 41.1 % (39.0-52.0); Hemoglobin 14.1 g/dL (13.0-18.0); Mean Corp Hgb Conc. 34.3 g/dL (33.0-37.0); Mean Corpuscular Hgb 31.5 pg (27.0-31.0); Mean Corpuscular Volume 91.9 fL (80.0-94.0); Mean Platelet Volume 9.6 fL (7.4-10.4); Nucleated Red Blood Cells % 0 % (-); Platelet Count 324 10^3/uL (130-400); Red Blood Cell Count 4.47 10^6/uL (4.70-6.10); Red Cell Dist. Width 12.7 % (11.5-14.5); White Blood Cell Count 6.8 10^3/uL (4.8-10.8)
[2024-05-06 00:50] LABS: Alcohol None Detected
[2024-05-06 07:10] VITALS: BP 129/71
[2024-05-06 07:40] LABS: Amphetamines Negative (Negative); Barbiturates Negative (Negative); Benzodiazepines Positive (Negative); Buprenorphine Negative (Negative); Cocaine Negative (Negative); Marijuana Negative (Negative); Methadone Negative (Negative); Methamphetamines Negative (Negative); Opiates Negative (Negative); Phencyclidine Negative (Negative); Tricyclic Antidepressants Negative (Negative)
[2024-05-06 07:58] LABS: Fentanyl, Urine Negative (Negative)
== END 2024-05-06 10:35 ==
LOC: EMR 23:43
PROVIDERS: EMERGENCY PHYSICIAN Emergency Medicine
DX: K72.90 Hepatic failure, unspecified without coma (principal); F90.9 Attention-deficit hyperactivity disorder, unspecified type; F31.9 Bipolar disorder, unspecified; F17.200 Nicotine dependence, unspecified, uncomplicated
CPT/HCPCS: 99283; 96374; 80053; 80143; 80179; 80306; 80307; 82077; 85025; 93005